=== PATIENT | female | born 1980 | race Caucasian/White ===

== ENCOUNTER 2017-01-26 06:56 | Day surgery (SDC) | payer BC ==
[~2017-01-26 06:56] MED LIST: LIDOCAINE W/ SODIUM BICARB 0.5 ML SYR ONE; Lactated Ringers 1,000 ML PRIMARY IV ONE
[2017-01-26] MEDS ORDERED: HYDROmorphone 2 MG/1 ML IVP PRN (06:59)
[2017-01-26] MEDS ORDERED: ONDANSETRON 4 MG/2 ML VIAL IVP PRN (06:59)
[2017-01-26] MEDS ORDERED: fentaNYL Inj 100 MCG/2 ML VIAL IVP PRN (06:59)
[2017-01-26] MEDS ORDERED: ATROPINE SULFATE 0.4 MG/1 ML VIAL IVP PRN (06:59)
[2017-01-26] MEDS ORDERED: Ondansetron ODT Tab 8 MG TAB PO PRN (06:59)
[2017-01-26] MEDS ORDERED: NORMAL SALINE 10 ML SYRINGE FLUSH IVP PRN ×2 (06:59→08:17)
[2017-01-26] MEDS ORDERED: Lactated Ringers 1,000 ML PRIMARY IV SCH (07:00)
[2017-01-26 07:18] VITALS: RESP 18; TEMP 98.5
[2017-01-26] MEDS ORDERED: fentaNYL Inj 250 MCG/5 ML VIAL ONE (07:20)
[2017-01-26] MEDS ORDERED: MIDAZOLAM 5 MG/1 ML ONE (07:20)
[2017-01-26] MEDS ORDERED: LIDOCAINE MPF 2% - 5 ML (20 MG/1 ML) ONE (07:21)
[2017-01-26] MEDS ORDERED: DEXAMETHASONE PF 10 MG/1 ML VIAL ONE (07:35)
[2017-01-26] MEDS ORDERED: KETOROLAC 30 MG/1 ML VIAL ONE (07:35)
[2017-01-26] MEDS ORDERED: ONDANSETRON 4 MG/2 ML VIAL ONE (07:35)
[2017-01-26] MEDS ORDERED: METHYLERGONOVINE MALEATE 0.2 MG/1 ML VIAL IM ONE (08:04)
[2017-01-26] MEDS: RHO(D) IMMUNE GLOBULIN 1500 UNIT(300 mcg)SYRIN IM PRN ×2 (08:17→09:19)
[2017-01-26] MEDS ORDERED: IBUPROFEN 800 MG TABLET PO PRN (08:17)
[2017-01-26] MEDS ORDERED: Lactated Ringers 1,000 ML PRIMARY IV ONE (08:18)
--- NOTE | 2017-01-26 08:24 | OB.OP.NOTE ---
Operative Report Surgeon: Victor Hugo Anesthesia Type: General Anesthesia Provider: Radha Esteban CRNA Surgery Date: 01/26/17 Preoperative Diagnosis: Missed AB Postoperative Diagnosis: Same Procedure: Suction D&C Estimated Blood Loss (mL): 400 Fluids: 1800 ml Complications: None Findings at Surgery: Anteverted uterus which sounded to 12 cm. Copious products of conception. Postprocedure sound 10 cm. Indications for the Procedure: Missed AB with a nonviable fetus measuring 8 weeks 1 day with no cardiac activity. Description of Procedure: The patient was taken to the operating room and placed supine where general laryngeal mask anesthesia was administered. She was then placed in lithotomy position in [facility]. Examination under anesthesia was significant only for the gravid anteverted uterus. She was prepped and draped in the normal sterile fashion and her bladder was emptied of urine with a straight catheter. A weighted speculum was placed in the vagina and the anterior lip of the cervix was grasped with a single-tooth tenaculum. The uterus was sounded to a depth of 12 cm. The cervix was then dilated with Robby dilators to #30. A 9 mm curved suction curette was then introduced to the uterine fundus and suction was applied. Multiple passes of suction curettage were then made with return of products of conception and blood. Sharp curettage was then performed with good cry noted in all 4 quadrants. A final passage of suction curettage was then made with return of no further products of conception and scant blood. The uterus was re-sounded to a depth of 10 cm. The tenaculum was then removed from the cervix and bleeding from the tenaculum puncture sites was controlled with [id number] 2-0 Vicryl suture at each site. Good hemostasis was noted from the cervical os at the conclusion of the procedure. There were no complications at surgery and the patient left to recovery in good condition. Plan: Routine postop care and discharge to home.
[2017-01-26] MEDS ORDERED: Methylergonovine Tab 0.2 MG TAB PO SCH (08:30)
[2017-01-26] MEDS ORDERED: Sodium Chloride 0.9% 1,000 ML PRIMARY IV SCH (08:30)
== END 2017-01-26 09:52 | disposition home or self-care (01) ==
LOC: SDSC 06:56
PROVIDERS: ATTEND Obstetrics & Gynecology
DX: O02.1 Missed abortion (principal); N91.2 Amenorrhea, unspecified
CPT/HCPCS: 59820; 86850; 86900; 86901; J1885; J2704; J2790; J3010; J1100; J2001; J2210; J2250; J2405; J7120

== ENCOUNTER 2018-05-23 04:56 | Inpatient (IN) ==
[2018-05-23] MEDS ORDERED: FAMOTIDINE 20 MG/2 ML VIAL IVP ONE (05:00)
[2018-05-23] MEDS ORDERED: Metoclopramide Inj 10 MG/2 ML VIAL IV ONE (05:00)
[2018-05-23] MEDS ORDERED: CefOXitin Inj 2 GM in Sodium Chloride 0.9% 100 ML IV ONE (05:00)
[2018-05-23] MEDS ORDERED: CITRIC ACID/SODIUM CITRATE 30 ML CUP PO ONE (05:00)
[2018-05-23] MEDS ORDERED: Lactated Ringers 1,000 ML PRIMARY IV SCH (05:00)
[2018-05-23] MEDS ORDERED: LIDOCAINE W/ SODIUM BICARB 0.5 ML SYR SUBD PRN (05:00)
[2018-05-23] MEDS ORDERED: Lactated Ringers 1,000 ML PRIMARY IV ONE ×4 (05:00→07:59)
[2018-05-23] MEDS ORDERED: Oxytocin 20 Units + LR 20 UNIT/1,000 ML BAG IV SCH ×2 (05:00→09:05)
[2018-05-23] MEDS ORDERED: LIDOCAINE HCL 2 % 10 ML JELLY URO-JECT TOPICAL PRN (05:00)
[2018-05-23 05:37] LABS: Hematocrit [HCT] 38.1 % (37.0-47.0); Hemoglobin [HGB] 13.3 g/dL (12.0-16.0); MEAN CORPUSCULAR HEMOGLOBIN 28.7 PG (27-31); MEAN CORPUSCULAR HGB CONC 34.9 g/dL (33-37); MEAN CORPUSCULAR VOLUME 82.1 FL (81-99); RED BLOOD COUNT 4.64 10^6/uL (4.20-5.40)
[2018-05-23] MEDS ORDERED: ePHEDrine Inj 50 MG/ML AMP ONE (06:27)
[2018-05-23] MEDS ORDERED: MORPHINE SULFATE/PF 10 MG/10 ML AMPULE ONE (06:36)
[2018-05-23] MEDS ORDERED: OXYTOCIN 10 UNIT/1 ML ONE (06:57)
[2018-05-23] MEDS ORDERED: PHENYLEPHRINE 10,000 MCG/1 ML VIAL ONE (07:30)
[2018-05-23] MEDS ORDERED: Sodium Chloride 0.9% vial 10 ML ONE (07:30)
--- NOTE | 2018-05-23 08:16 | OB.OP.NOTE ---
Operative Report Surgeon: Dr. Gay Asic Engineer: Boaz Duval MD Anesthesia Type: Regional Anesthesia Provider: Derrek Dela Cruz CRNA Surgery Date: 05/23/18 Preoperative Diagnosis: Twin IUP at 38 weeks EGA, Breech Presentation Baby B, Desires Sterilization Postoperative Diagnosis: Same Procedure: Primay LTCS with PPTL (Bilateral Salpingectomy) Estimated Blood Loss (mL): 1,500 Fluids: 2000 ml Complications: None identified Findings at Surgery: Baby A a viable male , Apgars 9/9 5# 3oz, in Cephalic lie. Baby B a viable male infant, Apgars 9/10 4# 15oz, in Breech lie. Normal uterus, tubes and ovaries. Indications for the Procedure: Twin at 38 weeks with baby B in breech presentation. Desires permanent sterilization. Description of Procedure: See dictated operative report. Plan: Routine post op care.
--- NOTE | 2018-05-23 08:33 | CRNA.PROCE ---
Central Neuraxis Block Placemt - - Safety Measures: Time Out Taken, Site Verified - - Type of Block: Subarachnoid Reason for Block: Surgical Moniters Used During Block: EKG, SPO2, NIBP Positioning: Sitting Skin Prep Used: Betadine Skin Infiltration - Enter Amount Used in Comment Field: 1% Xylocaine (mL): Yes Introducer User: 23 Gauge Spinal Needle Used: 25 Yovana 80 mm Local Anesthetic - Enter Amount Used in Comment Field: 0.75 % Bupivacaine with Dextrose (ml): Yes (15mg) Anesthesia Time - Other Weight: 132.721 kg Height: 6 ft 3 in Body Mass Index (BMI): 36.6
[2018-05-23] MEDS ORDERED: Nalbuphine Inj 20 MG/ML Ampule IVP PRN (09:05)
[2018-05-23] MEDS ORDERED: LANOLIN HPA 40 GM TUBE TOPICAL PRN (09:05)
[2018-05-23] MEDS ORDERED: BUTORPHANOL TARTRATE 2 MG/1 ML VIAL IVP PRN (09:05)
[2018-05-23] MEDS ORDERED: diphenhydrAMINE 25 MG CAPSULE PO PRN (09:05)
[2018-05-23] MEDS ORDERED: Naloxone Inj 0.01 MG, Sodium Chloride 0.9% vial 1 ML IVP PRN ×2 (09:05)
[2018-05-23] MEDS ORDERED: FAMOTIDINE 20 MG/2 ML VIAL IVP PRN (09:05)
[2018-05-23] MEDS ORDERED: CALCIUM CARBONATE 500 MG (TUMS) CHEWABLE TABLET PO PRN (09:05)
[2018-05-23] MEDS ORDERED: RHO(D) IMMUNE GLOBULIN 1500 UNIT(300 mcg)SYRIN IM PRN (09:05)
[2018-05-23] MEDS ORDERED: ONDANSETRON 4 MG/2 ML VIAL IVP PRN (09:05)
[2018-05-23] MEDS ORDERED: diphenhydrAMINE 50 MG/1 ML VIAL IV PRN (09:05)
[2018-05-23] MEDS ORDERED: DIPH,PERTUSS,TET(ADACEL) VAC/PF 0.5 ML (Tdap) IM ONE (09:05)
[2018-05-23] MEDS ORDERED: D5-LR 1,000 ML PRIMARY IV SCH (09:05)
[2018-05-23] MEDS ORDERED: RHO(D) IMMUNE GLOBULIN 1500 UNIT(300 mcg)SYRIN IM ONE (09:05)
[2018-05-23] MEDS: KETOROLAC 15 MG/1 ML VIAL IVP SCH ×3 (10:08→22:29)
--- NOTE | 2018-05-23 16:47 | CRNA.PROGR ---
Anesthesia Time - Procedure/Recovery Time Start Date: 05/23/18 End Date: 05/23/18 Anesthesia : Time In: 07:03 Anesthesia : Time Out: 08:10 Anesthesia : Total Time: 67 - Total Anesthesia Time Total Anesthesia Time (minutes): 67 - Other Weight: 132.721 kg Height: 6 ft 3 in Body Mass Index (BMI): 36.6 Physical Status: P2 Anesthesia Type: Spinal Block
--- NOTE | 2018-05-23 16:47 | CRNA.PROGR ---
Anesthesia Recovery Phase I - Post Anesthesia Evaluation Patient's Condition on Arrival in Phase I: Stable Pain Level: 0
--- NOTE | 2018-05-23 16:47 | CRNA.PROGR ---
Post Anesthesia Phase II - Post Anesthesia Phase II Patient Stable and Discharged To: Phase II Care Assumed By Surgeon: William Gay MD Temperature: 97.9 F Pulse Rate: 81 Respiratory Rate: 18 Blood Pressure: 117/79 Pulse Ox: 100 Total Leah Score at Discharge: 10 Post Anesthesia Discharge Criteria Met: Yes
[2018-05-24] MEDS: KETOROLAC 15 MG/1 ML VIAL IVP SCH ×2 (04:12→09:52)
[2018-05-24 05:00] LABS: Hematocrit [HCT] 30.1 % (37.0-47.0); Hemoglobin [HGB] 9.9 g/dL (12.0-16.0); MEAN CORPUSCULAR HGB CONC 32.9 g/dL (33-37); MEAN CORPUSCULAR VOLUME 85.3 FL (81-99); RED BLOOD COUNT 3.53 10^6/uL (4.20-5.40)
--- NOTE | 2018-05-24 07:46 | OB.PROGRES ---
Subjective Post Day: 1 Pain Management: PO Bennett Catheter: Yes Flatus: No Lochia Color: Rubra/Red Small 10-25 ml Diet: Regular Feeding Method: Exculsively Ambulating: Yes Concerns / Additional Information: Linn is doing well this AM. She had urinary retention last night which necessitated replacement of the Bennett. Her pain management is good. She is ambulating well. H/H this AM 06/26. Assesstment / Plan Assessment / Plan: POD 1, doing well. CCM.
--- NOTE | 2018-05-24 09:51 | CRNA.PROGR ---
Anesthesia Note - Progress Notes Anesthesia Progress Note: Visiting with family. She has been ambulatory ad kevin. Discussed her anesthetic course and she has no questions or concerns regarding her anesthetic care.
[2018-05-24] MEDS: Prenatal Multivitamin Tab 1 TAB TAB PO SCH (09:52)
[2018-05-24] MEDS: Senna/Docusate Tab 1 TAB TAB PO SCH ×2 (09:53→20:52)
[2018-05-24] MEDS: oxyCODONE-ACETAMINOPHEN 5-325 TAB PO PRN ×3 (12:13→23:52)
[2018-05-24] MEDS: IBUPROFEN 800 MG TABLET PO PRN ×2 (16:05→23:51)
[2018-05-24] MEDS ORDERED: LIDOCAINE HCL 2 % 10 ML JELLY URO-JECT TOPICAL PRN (20:03)
--- NOTE | 2018-05-25 07:10 | DCSUMMARY ---
Hospitalization Summary Admit Date: 05/23/18 Discharge Date: 05/25/18 Primary Diagnosis:: Term Twin , Breech Presentation Baby B Primary Surgery and Date: Primary LTCS with PPTL via Bilateral Salpingectomy Delivery Type: Hospital Course: Uncomplicated delivery. course uncomplicated. Discharged to home POD2 in good condition. / Postop Complications: None Complications: None Exam - Vitals Vital Signs: Vital Signs Temperature 98.1 F Temperature Source Oral Pulse Rate [Pulse Oximeter] 91 Pulse Rate 86 Respiratory Rate 16 Blood Pressure [Right Arm] 132/72 Blood Pressure 117/79 Pulse Ox 94 Oxygen Flow Rate 96 Oxygen Delivery Method Room Air Height 6 ft 3 in Weight 292 lb 9.6 oz
--- NOTE | 2018-05-25 07:13 | OB.PROGRES ---
Subjective Post Day: 2 Pain Management: PO Bennett Catheter: No Flatus: Yes Lochia Color: Serosa/Brown Small 10-25 ml Diet: Regular [place] Feeding Method: Formula Feeding Ambulating: Yes Concerns / Additional Information: Linn is doing well. She is ambulating well. Voiding without difficulty. She requests discharge to home. Assesstment / Plan Assessment / Plan: POD 2, doing well. Discharge to home.
[2018-05-25] MEDS: IBUPROFEN 800 MG TABLET PO PRN (08:01)
[2018-05-25] MEDS: Prenatal Multivitamin Tab 1 TAB TAB PO SCH (08:01)
[2018-05-25] MEDS: oxyCODONE-ACETAMINOPHEN 5-325 TAB PO PRN (08:01)
[2018-05-25] MEDS ORDERED: RHO(D) IMMUNE GLOBULIN 1500 UNIT(300 mcg)SYRIN IM ONE (09:00)
[2018-05-25] MEDS: Senna/Docusate Tab 1 TAB TAB PO SCH (09:31)
[2018-05-25 10:17] VITALS: BP 129/76; RESP 19; TEMP 98.3; O2SAT 97
== END 2018-05-25 13:00 | disposition home or self-care (01) | DRG 766 ==
LOC: OBOR 04:56 → OBIP 09:54
PROVIDERS: ADMIT Obstetrics & Gynecology; ATTEND Obstetrics & Gynecology